=== PATIENT | female | born 1960 | race Two or more races ===

== ENCOUNTER 2024-07-09 18:52 | Emergency (ER) | payer OTHER ==
[~2024-07-09] VITALS: Ht 167.6 cm; Wt 68.0 kg
[~2024-07-09 18:52] MED LIST: COUMADIN4 MG; LYRICA50 MG PO; XANAX1 MG PO
[2024-07-09] MEDS ORDERED: ALPRAZOLAM ODT1 MG PO (20:23)
[2024-07-09] MEDS ORDERED: LYRICA50 MG PO (20:25)
[2024-07-10] MEDS ORDERED: DILTIAZEM ER60 MG PO (01:42)
== END 2024-07-09 20:33 | disposition home or self-care (01) ==
LOC: ER 18:54
DX: G50.0 Trigeminal neuralgia (principal)

== ENCOUNTER 2024-07-10 01:10 | Emergency (ER) | payer OTHER ==
[~2024-07-10] VITALS: Ht 167.6 cm; Wt 68.9 kg
[~2024-07-10 01:10] MED LIST changes: +ALPRAZOLAM ODT1 MG PO
[2024-07-10] MEDS ORDERED: DILTIAZEM ER60 MG PO (01:42)
[2024-07-10] MEDS ORDERED: HALOPERIDOL LACTATE 5 MG/ML AMPUL IM STA (03:37)
[2024-07-10] MEDS ORDERED: DIPHENHYDRAMINE HCL 50 MG/ML VIAL 1ML IM STA (03:38)
[2024-07-10] MEDS ORDERED: DEXAMETHASONE SODIUM PHOSPHATE 4 MG/ML VIAL IV STA (03:39)
[2024-07-10] MEDS ORDERED: DIPHENHYDRAMINE HCL 50 MG/ML VIAL 1ML ONE (03:44)
[2024-07-10] MEDS ORDERED: HALOPERIDOL LACTATE 5 MG/ML AMPUL ONE (03:44)
[2024-07-10] MEDS ORDERED: DEXAMETHASONE SODIUM PHOSPHATE 4 MG/ML VIAL ONE (03:45)
[2024-07-10 05:06] LABS: HEMATOCRIT 41.6 % (36.0-45.00); HEMOGLOBIN 13.9 g/dL (12.0-15.00); MEAN CELL VOLUME 78.9 fL (80.00-100.00); MEAN CORPUSCULAR HEMOGLOBIN 26.4 pg (27.00-32.0); MEAN CORPUSCULAR HGB CONC 33.5 g/dl (32.0-36.0); PLATELET COUNT 264 K/uL (150-450); RED BLOOD COUNT 5.27 M/uL (4.00-6.00); RED CELL DISTRIBUTION WIDTH 15.2 % (11.5-14.5)
[2024-07-10 05:07] LABS: INR 1.1; PARTIAL THROMBOPLASTIN TIME 28.2 SECONDS (22.0-34.0); PROTHROMBIN TIME 11.9 SECONDS (9.0-11.5)
[2024-07-10] MEDS ORDERED: Pregabalin 50 MG CAPSULE PO STA (07:14)
== END 2024-07-10 07:43 | disposition home or self-care (01) ==
LOC: ER 01:10
DX: G50.0 Trigeminal neuralgia (principal); G44.009 Cluster headache syndrome, unspecified, not intractable